=== PATIENT | female | born 1975 | race Caucasian/White ===

== ENCOUNTER 2023-07-04 15:08 | Emergency (ER) | payer BC ==
[2023-07-04] MEDS: Acetaminophen/oxyCODONE 325-5 MG Tab PO ONE (16:02)
[2023-07-04] MEDS: Lidocaine 4% 1 each Patch TOP STA (16:03)
[2023-07-04] MEDS: Ketorolac 30 MG/ML SDV IVPUSH ONE (17:07)
[2023-07-04] MEDS: Ketorolac 30 MG/ML SDV IM ONE (17:10)
== END 2023-07-04 17:16 | disposition home or self-care (01) ==
LOC: MW.ED 15:08
DX: S22.32XA Fracture of one rib, left side, initial encounter for closed fracture (principal); W50.0XXA Accidental hit or strike by another person, initial encounter
CPT/HCPCS: 71101; 96372; 99283; A9270; J1885